=== PATIENT | male | born 1950 | race Caucasian/White ===

== ENCOUNTER → 2017-11-07 | Outpatient (CLI) | payer OTHER ==
[~2017-11-07] MED LIST: ECOTRIN TAB81 MG PO; OMEG10007 PO
== END | disposition home or self-care (01) ==
LOC: C.PATHSPEC 10:06
PROVIDERS: ATTEND Urology
DX: N40.0 Benign prostatic hyperplasia without lower urinary tract symptoms (principal)

== ENCOUNTER → 2018-01-02 | Outpatient (CLI) | payer OTHER ==
[~2018-01-02] MED LIST changes: +OPTIRAY 320 IV PRN
--- NOTE | 2018-01-02 14:50 | DIAGNOSTIC IMAGING REPORT ---
ABD/PELVIS COMBO CT DOSE: 1096.78 mGy.cm HISTORY: Hematuria R31.29 Hematuria, microscopicauth# [id number] good through TECHNIQUE: Multiaxial CT images of the abdomen and pelvis were performed pre and post intravenous contrast enhancement. A dose lowering technique was utilized adhering to the principles of ALARA. COMPARISON STUDY: None. FINDINGS: The lung bases are clear. The liver, spleen, gallbladder, pancreas, kidneys, and adrenal glands are within normal limits. No bowel wall thickening or obstruction. The pelvic organs are unremarkable. No suspicious lytic or blastic osseous lesions. The kidneys enhance uniformly. No abnormal renal calcifications. Several small hypodensities within the liver suggestive of small cysts. Nonobstructive bowel pattern. Delayed images of the bladder showed no significant filling defect. There are small fat-containing bilateral inguinal hernias. Mild chronic sigmoid diverticulosis. No evidence for acute diverticulitis. Three-dimensional evaluation of the urinary tracts show no significant filling defect. IMPRESSION: 1. Normal study of the urinary tracts. 2. Chronic sigmoid diverticulosis with no evidence for acute diverticulitis. 3. Small fat-containing inguinal hernias. 4. The study is otherwise entirely negative. The above report was generated using voice recognition software. It may contain grammatical, syntax or spelling errors. Electronically signed by: Adan Pinto M.D. 01/02/2018 2:49 PM Dictated Date/Time: 01/02/2018 2:44 PM
== END | disposition home or self-care (01) ==
LOC: C.CTS 13:53
PROVIDERS: ATTEND Urology
DX: R31.29 Other microscopic hematuria (principal); K57.30 Diverticulosis of large intestine without perforation or abscess without bleeding